=== PATIENT | male | born 1975 | race American Indian/Alaskan Native ===

== ENCOUNTER 2021-10-30 10:27 | Emergency (ER) | payer SELFPAY ==
[2021-10-30 10:38] VITALS: BP 123/79
--- NOTE | 2021-10-30 10:48 | Emergency Department Report ---
Abscess Boil HPI - HPI Chief Complaint: Skin/Abscess/Foreign Body Stated Complaint: SPIDER BITE Duration: 5 Days Location: Other Severity: Mild History: Yes Pain, Yes Purulent Drainage, Yes Insect Bite, No Fever, No Numbness, No Foreign Body, No Previous History HPI: Patient is a 45-year-old male that comes in with his right little toe which is hurting due to an insect bite. It has been several days he thought it would get better but it has not. It is draining. He is not diabetic. He does not know what insect has bit him. But the pain is radiating up his leg so he comes to the ER. Home Medications: Previous Rx's Medication Instructions Recorded Last Taken Type cephALEXin [Keflex] 500 mg PO Q12HR #20 cap 10/30/21 Unknown Rx Allergies/Adverse Reactions: Allergies Allergy/AdvReac Type Severity Reaction Status Date / Time No Known Allergies Allergy Unverified 10/30/21 10:35 ED Review of Systems ROS: Stated complaint: SPIDER BITE Other details as noted in HPI Comment: All other systems reviewed and negative ED Past Medical Hx - Past Medical History Previous Medical History?: No Hx Hypertension: No - Surgical History Past Surgical History?: No - Family History Family history: no significant - Social History Smoking Status: Never Smoker Substance Use Type: None - Medications Home Medications: Home Medications Medication Instructions Recorded Confirmed Last Taken Type cephALEXin [Keflex] 500 mg PO Q12HR #20 cap 10/30/21 Unknown Rx ED Abscess Boil Physical Exam - Exam General: Vital signs noted. No distress. Alert and acting appropriately. Exam: Yes Tenderness, Yes Normal Neurologic Exam, Yes Normal Circulation, No Fluctuance, No Surrounding Cellulites/Erythema, No Lymphangitis, No Crepitation, No Heart Murmur Exam: No I&D required ED Course Vital Signs 10/30/21 10:37 Temperature 98.3 F Pulse Rate 72 Respiratory 16 Rate Blood Pressure 123/79 O2 Sat by Pulse 94 Oximetry Critical care attestation.: If time is entered above; I have spent that time in minutes in the direct care of this critically ill patient, excluding procedure time. ED Medical Decision Making - Medical Decision Making Vital Signs 10/30/21 10:37 Temperature 98.3 F Pulse Rate 72 Respiratory 16 Rate Blood Pressure 123/79 O2 Sat by Pulse 94 Oximetry Localized erythema around the wound. The wound itself was thought to be an insect bite. It is draining small amount of clear drainage. There is no streaking up the foot or the leg. Patient is ambulatory. Neurovascularly intact. Patient being discharged home with discharge plan of care including diet, activity, medications and follow-up. He verbalizes understanding. - Differential Diagnosis Insect bite with cellulitis ED Disposition Clinical Impression: Insect bite Qualifiers: Encounter type: initial encounter Site of insect bite: toe Cellulitis Qualifiers: Site of cellulitis: unspecified site Qualified Code(s): L03.90 - Cellulitis, unspecified Disposition: HOME / SELF CARE / HOMELESS Is pt being admited?: No Does the pt Need Aspirin: No Condition: Stable Instructions: Cellulitis, Adult Additional Instructions: Medication as ordered today until gone Follow-up with PCP next week to make sure this is getting better. There is a referral below. Motrin or Tylenol for pain. Keep wound clean and dry. Prescriptions: cephALEXin [Keflex] 500 mg PO Q12HR #20 cap Referrals: DIAN CAMPOS MD [Staff Physician] - 3-5 Days Time of Disposition: 10:47
== END 2021-10-30 11:17 | disposition home or self-care (01) ==
LOC: ED 10:27
DX: S90.464A Insect bite (nonvenomous), right lesser toe(s), initial encounter (principal); L03.90 Cellulitis, unspecified; W57.XXXA Bitten or stung by nonvenomous insect and other nonvenomous arthropods, initial encounter; Y93.89 Activity, other specified; Y92.89 Other specified places as the place of occurrence of the external cause; Y99.8 Other external cause status
CPT/HCPCS: 99282

== ENCOUNTER 2021-12-03 11:28 | Emergency (ER) | payer SELFPAY ==
--- NOTE | 2021-12-03 12:21 | Emergency Department Report ---
ED General Adult HPI - General Stated complaint: SPIDER BITE Time Seen by Provider: 12/03/21 12:06 - History of Present Illness Initial comments: 46 Y M with no PMH reports pain to right little toe with swelling noted. Patient reports taking abx as prescribed with slight relief but symptoms returned after medication was completed. - Related Data Previous Rx's Medication Instructions Recorded Last Taken Type cephALEXin [Keflex] 500 mg PO Q12HR #20 cap 10/30/21 Unknown Rx Acetaminophen/Codeine [Tylenol 1 tab PO Q6H PRN 3 Days #10 tab 12/03/21 Unknown Rx /Codeine # 3 tab] Sulfamethoxazole/Trimethoprim 1 each PO BID #20 tab 12/03/21 Unknown Rx [Bactrim DS TAB] Allergies Allergy/AdvReac Type Severity Reaction Status Date / Time No Known Allergies Allergy Unverified 10/30/21 10:35 ED Review of Systems ROS: Stated complaint: SPIDER BITE Other details as noted in HPI ED Past Medical Hx - Past Medical History Hx Hypertension: No - Social History Smoking Status: Never Smoker Substance Use Type: None - Medications Home Medications: Home Medications Medication Instructions Recorded Confirmed Last Taken Type cephALEXin [Keflex] 500 mg PO Q12HR #20 cap 10/30/21 Unknown Rx Acetaminophen/Codeine [Tylenol 1 tab PO Q6H PRN 3 Days #10 tab 12/03/21 Unknown Rx /Codeine # 3 tab] Sulfamethoxazole/Trimethoprim 1 each PO BID #20 tab 12/03/21 Unknown Rx [Bactrim DS TAB] Critical care attestation.: If time is entered above; I have spent that time in minutes in the direct care of this critically ill patient, excluding procedure time. ED Disposition Clinical Impression: Toe pain, right Spider bite Qualifiers: Encounter type: initial encounter Injury intent: undetermined intent Qualified Code(s): T63.304A - Toxic effect of unspecified spider venom, undetermined, initial encounter Is pt being admited?: No Condition: Stable Instructions: Spider Bite, [id number], Pain Without a Known Cause Prescriptions: Sulfamethoxazole/Trimethoprim [Bactrim DS TAB] 1 each PO BID #20 tab Acetaminophen/Codeine [Tylenol /Codeine # 3 tab] 1 tab PO Q6H PRN 3 Days #10 tab PRN Reason: Pain , Severe (7-10) Referrals: [facility] [Outside] - 3-5 Days
[2021-12-03 14:16] VITALS: BP 137/94
== END 2021-12-03 14:20 | disposition home or self-care (01) ==
LOC: ED 11:28
DX: S90.464A Insect bite (nonvenomous), right lesser toe(s), initial encounter (principal); M79.674 Pain in right toe(s); T63.304A Toxic effect of unspecified spider venom, undetermined, initial encounter; Y93.89 Activity, other specified; Y92.89 Other specified places as the place of occurrence of the external cause; Y99.8 Other external cause status
CPT/HCPCS: 99282